=== PATIENT | male | born 1940 | race Caucasian/White ===

== ENCOUNTER 2016-05-12 05:13 | Inpatient (IN) | payer OTHER ==
--- NOTE | ~2016-05-12 | HP ---
History And Physical [address] [place]. [address] NAME: JAKE MAGAÑA : 39 STATUS : ADM IN [facility]#: [id number] AGE: 75 ADM/REG DATE : 05/12/16 MR#: [id number] REPORT SERV DATE: 05/12/16 DICTATED BY: DATE: REPORT STATUS : Draft TRANSCRIBED BY: MODL DATE: 05/12/16 DATE OF ADMISSION: 05/12/2016 CHIEF COMPLAINT: Shortness of breath and cough. HISTORY OF PRESENT ILLNESS: Mr. Magaña is a 75-year-old white male, who dialyzes in [place] on Thursday, Thursday, and Thursday for his end-stage renal disease. He has a history of COPD, coronary artery disease, and aortic valve replacement. He presents to the hospital with a two- to three-week history of cough. He states the cough is not new. He has a chronic white sputum production that has worsened. He is also experiencing shortness of breath. Denies any fevers or chills. Denies any chest pain. No other symptoms, but given the persistent nature of his symptoms, he presented to the emergency department. In the emergency department, it is felt he possibly had pneumonia and therefore, he was admitted for further evaluation and treatment. PAST MEDICAL HISTORY: End-stage renal disease, hypertension, COPD, aortic stenosis with aortic valve replacement, coronary artery disease, head injury in the past, obstructive sleep apnea. SOCIAL HISTORY: He is , lives with . Has a history of tobacco use, but quit in the . No alcohol or illicit drug use. FAMILY MEDICAL HISTORY: Positive for end-stage renal disease. ALLERGIES: NONE. MEDICATIONS: Amlodipine, aspirin, B complex, Symbicort, Plavix, Aranesp, Lasix, Imdur, magnesium, nitroglycerin, and Renvela. REVIEW OF SYSTEMS: A 12-point review of systems obtained and negative with the exception of that in the HPI. PHYSICAL EXAMINATION: VITAL SIGNS: Temperature 98.5, blood pressure 144/48, pulse 68, respiratory rate 16, O2 saturation is 95%. GENERAL: This is a pleasant, cooperative white male. He is awake, alert and oriented x3, in no acute distress. Answers questions appropriately. HEENT: Normocephalic and atraumatic. Conjunctivae clear. Sclerae anicteric. Pupils are equal and round. Oral mucosa is moist. NECK: Supple. Carotids are brisk. Neck veins are flat. No lymphadenopathy. LUNGS: Respirations are even and unlabored. He does cough throughout exam and has some rhonchi bilaterally. Breath sounds are also coarse. HEART: Rate is regular. I did hear a faint murmur. No rub or gallop. ABDOMEN: Soft and nontender. Bowel sounds active. No masses. No hepatosplenomegaly. No bruits. No CVA tenderness. BACK: Within normal limits. History And Physical [address] [place]. [address] NAME: JAKE MAGAÑA : 39 STATUS : ADM IN [facility]#: [id number] AGE: 75 ADM/REG DATE : 05/12/16 MR#: [id number] REPORT SERV DATE: 05/12/16 DICTATED BY: DATE: REPORT STATUS : Draft TRANSCRIBED BY: MODL DATE: 05/12/16 EXTREMITIES: No edema, cyanosis, or clubbing. SKIN: Warm, dry, and intact. No unusual rashes or skin lesions. NEURO: No focal deficits. Mood and affect, pleasant and appropriate. PERTINENT LABORATORIES AND X-RAYS: Chest x-ray which is negative. BNP of 1353. Sodium 138, potassium 4.6, chloride 105, CO2 of 22, BUN of 46, creatinine of 5.3, calcium 8.6, glucose 102, albumin of 3.5. LFTs unremarkable. Troponin 0.09. WBCs 14,000; H and H 10 and 33; platelets 212,000. IMPRESSION: 1. Possible pneumonia. 2. Chronic obstructive pulmonary disease. 3. End-stage renal disease. 4. Hypertension. 5. Coronary artery disease, status post bypass. PLAN: Admit. Antibiotics, nebulizers, dialysis. His troponin was mildly elevated at 0.09, we will complete a set of cardiac enzymes. Check procalcitonin, antibiotics, and follow up symptoms. Further orders and recommendations pending clinical course. ROBIN/ALMA JOSE LUIS Ford / [id number] CC: Mamie Frias M.D.
--- NOTE | ~2016-05-12 | CN ---
Consultation Report [facility] [address] [place]. [address] NAME: JAKE JENKINS : 39 STATUS : ADM IN PAT#: [id number] AGE: 75 ADM/REG DATE : 05/12/16 MR#: [id number] REPORT SERV DATE: 05/14/16 DICTATED BY: LAWRENCE CANALES DATE: 05/14/16 REPORT STATUS : Draft TRANSCRIBED BY: MODL DATE: 05/14/16 CARDIOVASCULAR CONSULTATION DATE OF CONSULTATION: 05/14/2016 HISTORY OF PRESENT ILLNESS: Mr. Jake Jenkins is a 75-year-old gentleman with a past medical history significant for coronary artery disease, status post previous bypass with aortic valve replacement in [place]. This was performed in 2007. He had a redo bypass which was a robotic-assisted MIDCAB by Dr. Quiñones in January 2014 with a MALCOLM to the LAD. He has done very well from a cardiac standpoint since that time. The patient also is a dialysis patient. He presented to the hospital with a two- to three-week history of worsening cough and sputum production. He also reported some shortness of breath. He denies any chest pain. He denies any diaphoresis or nausea. He was admitted secondary to possible pneumonia. REVIEW OF SYSTEMS: As above, otherwise, noncontributory. The patient specifically denies cardiac complaints including palpitations, orthopnea, paroxysmal nocturnal dyspnea, syncope, or presyncope. He denies chest pain or pressure. PAST MEDICAL HISTORY: As noted above, significant for two-vessel bypass with bioprosthetic aortic valve replacement in 2007 in [place]. The bypass was a sequential SVG to the obtuse marginal artery and posterior descending artery. Subsequent MINICAB by Dr. Quiñones in 2013, MALCOLM to LAD. The patient also with a history of asthma/COPD. He has history of chronic kidney disease with dialysis on Thursday, Thursday, and Thursday. He has a history of hypertension. FAMILY HISTORY: Noncontributory. SOCIAL HISTORY: The patient quit smoking in 1983. ALLERGIES: THE PATIENT HAS NO KNOWN DRUG ALLERGIES. MEDICATIONS: See list. PHYSICAL EXAMINATION: VITAL SIGNS: Blood pressure 150/70, pulse is 86, and respiratory rate 18. GENERAL: This is a well-developed, well-nourished 75-year-old white male, alert and oriented x3, in no acute distress. NECK: No jugular venous distention, hepatojugular reflux, or carotid bruits. CARDIOVASCULAR: Normal rate with regular rhythm. A 3/6 systolic murmur, heard best at the left upper sternal border. ABDOMEN: Benign. Consultation Report [facility] [address]. [address] NAME: JAKE JENKINS : 39 STATUS : ADM IN [facility]#: [id number] AGE: 75 ADM/REG DATE : 05/12/16 MR#: [id number] REPORT SERV DATE: 05/14/16 DICTATED BY: LAWRENCE CANALES DATE: 05/14/16 REPORT STATUS : Draft TRANSCRIBED BY: ALMA DATE: 05/14/16 EXTREMITIES: Reveals no clubbing, cyanosis, or edema. LABORATORY DATA: Significant for a troponin of 0.09, 0.07, and 0.05. This morning, this was slightly higher at 0.26. EKG showed sinus rhythm with frequent PACs and PVCs. There is no acute injury pattern. There is a first-degree AV block. Review of telemetry shows some nonsustained ventricular tachycardia and one strip with suggested brief run of atrial fibrillation. ASSESSMENT: 1. Possible pneumonia. 2. End-stage renal disease. 3. Coronary artery disease, status post redo coronary artery bypass grafting. 4. Status post aortic valve replacement. 5. Nonsustained ventricular tachycardia, brief atrial fibrillation. PLAN: 1. We will increase beta-david. 2. I have discussed possible repeat cardiac catheterization with this patient who is currently not agreeable. I will see how he does with medical management. His slightly elevated troponin is not too bothersome considering his comorbidities and end-stage renal disease. 3. I have convinced him to stay for one more day as he was initially planning on leaving this morning. We will try to verify that he has no further arrhythmia or sign of ischemia prior to his discharge. I appreciate your consultation on this complex patient. I will follow him closely with you. SHARI Lawrence Canales M.D., [facility] / [id number] CC: Mamie Frias M.D. David Castrilli, MD
--- NOTE | ~2016-05-12 | DS ---
Discharge Summary [facility] [address] [place]. [address] NAME: JAKE MAGAÑA : 38 STATUS : DIS IN PAT#: [id number] AGE: 75 ADM/REG DATE : 05/12/16 MR#: [id number] REPORT SERV DATE: 05/21/16 DICTATED BY: RAY ELMORE DATE: 05/20/16 REPORT STATUS : Draft TRANSCRIBED BY: ALMA DATE: 05/20/16 Data Collection from hospitalization DISCHARGE DIAGNOSES: 1. Gww-EW-yjhvbzftk myocardial infarction. 2. Nonsustained ventricular tachycardia/atrial fibrillation. 3. End-stage renal disease. 4. Possible pneumonia. 5. Acute exacerbation of chronic obstructive pulmonary disease. 6. Coronary artery disease. 7. Hypertension. 8. Obstructive sleep apnea. 9. Former smoker. CONSULTATIONS: Lawrence Soto M.D., [facility]. PROCEDURES: None. DISCHARGE MEDICATIONS: 1. Norvasc 10 mg every morning. 2. Aspirin 325 mg every morning. 3. Renal Softgels 1 mg every morning. 4. Symbicort two puffs via inhaler daily as needed. 5. Plavix 75 mg every morning. 6. Lasix 80 mg with breakfast and supper. 7. Imdur 30 mg every morning. 8. Mag-Ox 400 mg twice a day. 9. Lopressor 50 mg twice a day. 10.Deltasone 10 mg four times a day. 11.Renvela 800 mg with meals. CONDITION AT DISCHARGE: Stable. DISPOSITION: The patient was discharged home on a renal diet with activities as instructed. He would follow up with Dr. Lawrence Soto as instructed. HOSPITAL COURSE: This is a 75-year-old man who dialyzes on Mondays, Wednesdays, and Fridays for his end-stage renal disease. He has a history of COPD and coronary artery disease as well as aortic valve replacement. He presented to the hospital with a hdy-un-tureh-week history of cough. He said the cough was not new. He has a chronic white sputum production that has worsened. He was also experiencing shortness of breath. He denied any fevers or chills. He denied chest pain. Given the persistent nature of his symptoms he presented to the emergency department. In the emergency department, it was felt that he possibly had pneumonia, and therefore he was admitted at this time for further evaluation and treatment. Upon admission, creatinine level was 5.3. White count was 14,000. Liver function tests were unremarkable. Antibiotics, nebulizers, and dialysis were going to begin. Troponin was mildly elevated at 0.09. A complete set of cardiac enzymes would be obtained. We would Discharge Summary [address]. [address] NAME: JAKE MAGAÑA : 39 STATUS : DIS IN PAT#: [id number] AGE: 75 ADM/REG DATE : 05/12/16 MR#: [id number] REPORT SERV DATE: 05/21/16 DICTATED BY: RAY ELMORE DATE: 05/20/16 REPORT STATUS : Draft TRANSCRIBED BY: ALMA DATE: 05/20/16 check procalcitonin level. Hemodialysis therapy was performed. The following day, his shortness of breath and cough had improved. Blood cultures were negative. IV steroids and nebulizers were being given. Antibiotics were continued. On 05/14/2016, he was seen by Dr. Lawrence Soto. The patient has a history significant for coronary artery disease. He is status post previous bypass with aortic valve replacement in [place], this was performed in 2007. He had a redo bypass which was a robotic assisted MIDCAB by Dr. Quiñones in January 2014 with MALCOLM to the LAD. He has done very well from a cardiac standpoint since that time. He is a dialysis patient. He had reported some shortness of breath and a worsening cough and sputum production over the last couple of weeks. He denied any chest pain, diaphoresis, or nausea. He was felt to have possible pneumonia. Troponin was 0.09, 0.07, and 0.05 and then earlier in the day it was slightly higher at 0.26. EKG showed sinus rhythm with frequent PAC and PVCs. There was no acute injury pattern. There was a first degree AV block. Telemetry showed some nonsustained ventricular tachycardia, in one strip was suggested brief run of atrial fibrillation. Beta-david was increased. Possible repeat cardiac catheterization was discussed with the patient, who was currently not agreeable. We are going to see how he did with medical management. We convinced the patient to stay for one more day as he was initially planning on leaving that morning. We would try to verify that he had no further arrhythmia or signs of ischemia prior to discharge. Echocardiogram was performed. Hemodialysis therapy was performed. On 05/15/2016, he reported no new complaints. He denied chest pain or shortness of breath. He had no tightness. He had a few mild rhonchi. His elevated troponin and nonsustained ventricular tachycardia was felt to be suspicious for ischemia. It was felt that he should undergo left heart catheterization and percutaneous coronary intervention, but the patient refused. Dr. Soto candidly discussed the risk of fatal arrhythmia or myocardial infarction, and the patient continued to refuse. The patient has moderate aortic insufficiency and mitral regurgitation. Ejection fraction was 50%. There was no significant change from 2013. The risk of leaving against medical advice was discussed with the patient as well as the benefits of remaining in the hospital. The patient expressed that he would contact Cardiology for a cardiac catheterization as an outpatient. He was advised to call 911 for any worsening symptoms. It was advised that the patient not drive. Discharge instructions were given. The patient elected to leave the hospital against medical advice. Information collected by: Octavia Vera I submit the above information as my discharge summary. TG/MODL Ray Elmore M.D. / [id number] CC: Anand Pruitt M.D. Jeronimo Chacko M.D. Lawrence Soto M.D., [facility]
[2016-05-12 04:02] LABS: BASOPHILS 0.2 %; BASOPHILS ABSOLUTE 0.03 10/3/uL (0.0-0.16); EOSINOPHILS 2.7 %; EOSINOPHILS ABSOLUTE 0.38 10/3/uL (0.0-0.53); HEMATOCRIT 33.2 % (40.0-51.0); HEMOGLOBIN 10.8 g/dL (13.6-17.8); IMMATURE GRANULOCYTES 0.3 %; IMMATURE GRANULOCYTES ABSOLUTE 0.04 10/3/uL (0.0-0.11); LYMPHOCYTES 3.8 %; LYMPHOCYTES ABSOLUTE 0.53 10/3/uL (0.67-4.30); MEAN CORPUS HGB CONC 32.5 g/dL (32.0-36.0); MEAN CORPUSCULAR HEMOGLOB 31.1 pg (26.0-34.0); MEAN PLATELET VOLUME 10.6 fL (9.2-13.0); MONOCYTES 7.4 %; MONOCYTES ABSOLUTE 1.05 10/3/uL (0.21-1.20); NEUTROPHILS 85.6 %; PLATELET COUNT 212 10/3/uL (150-400); RBC DISTRIBUTION WIDTH 13.8 % (12.0-16.0); RED CELL COUNT 3.47 10/6/uL (4.7-6.1)
[2016-05-12 04:03] LABS: MANUAL DIFF NO %; MEAN CORPUSCULAR VOLUME 95.7 fL (80-100); WHITE BLOOD CELLS 14.1 10/3/uL (4.5-10.5)
[2016-05-12 04:12] LABS: INFLUENZA A SCREEN NEGATIVE (NEGATIVE); INFLUENZA B SCREEN NEGATIVE (NEGATIVE)
[2016-05-12 04:33] LABS: A/G RATIO 0.8 (0.7-1.9); ALBUMIN 3.5 G/DL (3.5-5.0); BUN (BLOOD UREA NITROGEN) 46 MG/DL (6-23); CALCIUM, SERUM 8.6 MG/DL (8.5-10.4); CHLORIDE, SERUM 105 MMOL/L (96-112); GLOBULIN 4.2 G/DL (2.5-4.1); POTASSIUM, SERUM 4.6 MMOL/L (3.5-5.3); SGOT(AST) 22 U/L (5-40); SGPT(ALT) 20 U/L (5-65); SODIUM, SERUM 138 MMOL/L (135-148); TOTAL BILIRUBIN 0.6 MG/DL (0-1.2); TOTAL PROTEIN 7.7 G/DL (6.0-8.5)
[2016-05-12 04:34] LABS: ALKALINE PHOSPHATASE 87 U/L (45-117); CO2 (CARBON DIOXIDE) 22 MMOL/L (24-34); CREATININE 5.36 MG/DL (0.70-1.30); GFR AFRICAN AMERICAN 11 ML/MIN (>=60); GFR NON AFRICAN AMERICAN 10 ML/MIN (>=60); GLUCOSE, SERUM 102 MG/DL (60-99); TROPONIN I 0.09 NG/ML (<0.05)
[~2016-05-12 05:13] MED LIST: ADVAIR; ADVAIR250 INH; ASA5GR PO; ASAB PO; CARDURA XL8 MG PO; CARDURA8 MG PO; CENTRUM TAB1 TAB PO; COZ50 PO; CRESTOR20 MG PO; DEPO-TESTOS100 MG/ML IM; EZFE 200200 MG PO; FERROUS SULF325 M1 PO; HALF81 PO; IMDUR30 PO; L80 PO; LOP25 PO; MULTI-VIT HP OR; NORCO1 TA1 PO; NORV10 PO; PEP20 PO; PLAVIX PO; PRAVACHOL40 MG PO; RENAL SFTGLS1 MG PO; ROCALTROL 0.0.25 MCG PO; SEVE800T PO; UNABLE TO VERIFY; X25 PO
[2016-05-12] MEDS ORDERED: ARANESP25 IV (08:33)
[2016-05-12] MEDS ORDERED: ASA5GR PO (08:34)
[2016-05-12] MEDS ORDERED: NORV10 PO (08:34)
[2016-05-12] MEDS ORDERED: IMDUR30 PO (08:35)
[2016-05-12] MEDS ORDERED: L80 PO (08:35)
[2016-05-12] MEDS ORDERED: PLAVIX PO (08:36)
[2016-05-12] MEDS ORDERED: MAGOX4 PO (08:36)
[2016-05-12] MEDS ORDERED: SEVE800T PO (08:37)
[2016-05-12] MEDS ORDERED: RENAL SFTGLS1 MG PO (08:37)
[2016-05-12] MEDS ORDERED: SYMBICORT 80/4.1 INH INH (08:38)
[2016-05-12] MEDS ORDERED: NITROSTAT0.4 MG SL (08:40)
[2016-05-12 12:08] LABS: PROCALCITONIN 0.24 ng/mL (<0.5)
[2016-05-13 09:12] LABS: BASOPHILS 0 %; EOSINOPHILS 0 %; HEMATOCRIT 32.8 % (40.0-51.0); HEMOGLOBIN 10.8 g/dL (13.6-17.8); IMMATURE GRANULOCYTES 0.2 %; IMMATURE GRANULOCYTES ABSOLUTE 0.04 10/3/uL (0.0-0.11); LYMPHOCYTES ABSOLUTE 0.35 10/3/uL (0.67-4.30); MANUAL DIFF NO %; MEAN CORPUS HGB CONC 32.9 g/dL (32.0-36.0); MEAN CORPUSCULAR HEMOGLOB 31.1 pg (26.0-34.0); MEAN CORPUSCULAR VOLUME 94.5 fL (80-100); MEAN PLATELET VOLUME 10.5 fL (9.2-13.0); MONOCYTES 2.2 %; MONOCYTES ABSOLUTE 0.38 10/3/uL (0.21-1.20); NEUTROPHILS 95.6 %; NEUTROPHILS ABSOLUTE 16.49 10/3/uL (2.02-8.40); PLATELET COUNT 218 10/3/uL (150-400); RBC DISTRIBUTION WIDTH 14.1 % (12.0-16.0); RED CELL COUNT 3.47 10/6/uL (4.7-6.1); WHITE BLOOD CELLS 17.3 10/3/uL (4.5-10.5)
[2016-05-13 09:23] LABS: ALBUMIN 3.4 G/DL (3.5-5.0); BUN (BLOOD UREA NITROGEN) 43 MG/DL (6-23); CHLORIDE, SERUM 100 MMOL/L (96-112); CO2 (CARBON DIOXIDE) 24 MMOL/L (24-34); CREATININE 4.53 MG/DL (0.70-1.30); GFR AFRICAN AMERICAN 14 ML/MIN (>=60); GFR NON AFRICAN AMERICAN 12 ML/MIN (>=60); GLUCOSE, SERUM 237 MG/DL (60-99); PHOSPHORUS, SERUM 2.4 MG/DL (2.5-4.5); POTASSIUM, SERUM 3.5 MMOL/L (3.5-5.3); SODIUM, SERUM 140 MMOL/L (135-148)
[2016-05-14 05:17] LABS: HEMATOCRIT 29.7 % (40.0-51.0); MEAN CORPUS HGB CONC 33.7 g/dL (32.0-36.0); MEAN CORPUSCULAR HEMOGLOB 32.3 pg (26.0-34.0); MEAN CORPUSCULAR VOLUME 95.8 fL (80-100); MEAN PLATELET VOLUME 10.9 fL (9.2-13.0); PLATELET COUNT 206 10/3/uL (150-400); RBC DISTRIBUTION WIDTH 14.2 % (12.0-16.0); WHITE BLOOD CELLS 21.6 10/3/uL (4.5-10.5)
[2016-05-14 05:20] LABS: MANUAL DIFF YES %
[2016-05-14 05:30] LABS: ALBUMIN 3.1 G/DL (3.5-5.0); CALCIUM, SERUM 8.7 MG/DL (8.5-10.4); CHLORIDE, SERUM 100 MMOL/L (96-112); CO2 (CARBON DIOXIDE) 24 MMOL/L (24-34); PHOSPHORUS, SERUM 2.8 MG/DL (2.5-4.5); POTASSIUM, SERUM 3.9 MMOL/L (3.5-5.3); SODIUM, SERUM 138 MMOL/L (135-148)
[2016-05-14 05:31] LABS: BUN (BLOOD UREA NITROGEN) 65 MG/DL (6-23); CK-MB 3.4 NG/ML; CPK 79 U/L (0-200); CREATININE 5.58 MG/DL (0.70-1.30); GFR AFRICAN AMERICAN 11 ML/MIN (>=60); GFR NON AFRICAN AMERICAN 9 ML/MIN (>=60); GLUCOSE, SERUM 176 MG/DL (60-99)
[2016-05-14 05:32] LABS: TROPONIN I 0.26 NG/ML (<0.05); ULTRASENSITIVE TSH 0.202 MCIU/ML (0.358-3.740)
[2016-05-14 05:44] LABS: LYMPHOCYTES 2 %; LYMPHOCYTES ABSOLUTE (CALC) 0.43 10/3/uL (0.67-4.30); MONOCYTES 2 %; MONOCYTES ABSOLUTE (CALC) 0.43 10/3/uL (0.21-1.20); NEUTROPHILS ABSOLUTE (CALC) 20.74 10/3/uL (2.02-8.40); PLATELET ESTIMATE ADQ (ADEQUATE); RBC MORPHOLOGY NORM (NORMAL); SEGMENTED NEUTROPHIL (0) 96 %; TOTAL NUCLEATED CELLS 100
[2016-05-14 13:48] LABS: CPK 91 U/L (0-200); TROPONIN I 0.45 NG/ML (<0.05)
[2016-05-14 18:25] LABS: CPK 97 U/L (0-200)
[2016-05-14 18:26] LABS: CK-MB 4.4 NG/ML
[2016-05-15 07:56] LABS: BASOPHILS 0.1 %; BASOPHILS ABSOLUTE 0.01 10/3/uL (0.0-0.16); EOSINOPHILS 0 %; HEMOGLOBIN 11.7 g/dL (13.6-17.8); IMMATURE GRANULOCYTES 0.8 %; IMMATURE GRANULOCYTES ABSOLUTE 0.15 10/3/uL (0.0-0.11); LYMPHOCYTES 4.1 %; LYMPHOCYTES ABSOLUTE 0.82 10/3/uL (0.67-4.30); MEAN CORPUS HGB CONC 33.3 g/dL (32.0-36.0); MEAN CORPUSCULAR HEMOGLOB 32.1 pg (26.0-34.0); MEAN CORPUSCULAR VOLUME 96.4 fL (80-100); MONOCYTES 1.9 %; MONOCYTES ABSOLUTE 0.37 10/3/uL (0.21-1.20); NEUTROPHILS 93.1 %; NEUTROPHILS ABSOLUTE 18.64 10/3/uL (2.02-8.40); PLATELET COUNT 232 10/3/uL (150-400); RBC DISTRIBUTION WIDTH 14.1 % (12.0-16.0); RED CELL COUNT 3.64 10/6/uL (4.7-6.1)
[2016-05-15 08:01] LABS: HEMATOCRIT 35.1 % (40.0-51.0); MANUAL DIFF NO %
[2016-05-15 08:12] LABS: ALBUMIN 3.5 G/DL (3.5-5.0); BUN (BLOOD UREA NITROGEN) 56 MG/DL (6-23); CALCIUM, SERUM 8.8 MG/DL (8.5-10.4); CHLORIDE, SERUM 99 MMOL/L (96-112); CO2 (CARBON DIOXIDE) 24 MMOL/L (24-34); CREATININE 4.59 MG/DL (0.70-1.30); GFR AFRICAN AMERICAN 13 ML/MIN (>=60); GFR NON AFRICAN AMERICAN 12 ML/MIN (>=60); GLUCOSE, SERUM 122 MG/DL (60-99); PHOSPHORUS, SERUM 3.5 MG/DL (2.5-4.5); POTASSIUM, SERUM 4.6 MMOL/L (3.5-5.3); SODIUM, SERUM 136 MMOL/L (135-148)
[2016-05-15] MEDS ORDERED: LOP25 PO (10:55)
[2016-05-15] MEDS ORDERED: P10 PO (10:55)
[2016-05-29] MEDS ORDERED: CARDURA8 MG PO (11:47)
== END 2016-05-15 11:06 | disposition left against medical advice (07) | DRG 190 ==
LOC: ER 05:13 → 2SO 06:00
PROVIDERS: Internal Medicine Nephrology; Nurse Practitioner; Specialist
PROC: 5A1D60Z (ICD-10-PCS; principal; 2016-05-12)
DX: J44.1 Chronic obstructive pulmonary disease with (acute) exacerbation (principal); J18.1 Lobar pneumonia, unspecified organism; I47.2 Ventricular tachycardia; N18.6 End stage renal disease; I12.0 Hypertensive chronic kidney disease with stage 5 chronic kidney disease or end stage renal disease; I48.91 Unspecified atrial fibrillation; I25.10 Atherosclerotic heart disease of native coronary artery without angina pectoris; G47.33 Obstructive sleep apnea (adult) (pediatric); I08.0 Rheumatic disorders of both mitral and aortic valves; J44.0 Chronic obstructive pulmonary disease with (acute) lower respiratory infection; Z84.1 Family history of disorders of kidney and ureter; Z99.2 Dependence on renal dialysis; Z95.1 Presence of aortocoronary bypass graft; Z95.2 Presence of prosthetic heart valve; Z79.01 Long term (current) use of anticoagulants; Z53.21 Procedure and treatment not carried out due to patient leaving prior to being seen by health care provider; Z87.891 Personal history of nicotine dependence
CPT/HCPCS: 71010; 80053; 80069; 82550; 82553; 82962; 83735; 83880; 84145; 84443; 84484; 85025; 85730; 87040; 87070; 87205; 87804; 93005; 93306; 94640; 96374; 96375; 99285; A9270-GY; G0257; J0456; J2920; J2930

== ENCOUNTER 2016-05-30 05:54 | Observation (INO) | payer OTHER ==
--- NOTE | ~2016-05-30 | OP ---
Record Of Operation [facility] [address] [place]. [address] NAME: JAKE MAGAÑA : 38 STATUS : DIS [place] PAT#: [id number] AGE: 75 ADM/REG DATE : 05/30/16 MR#: [id number] REPORT SERV DATE: 06/02/16 DICTATED BY: LAWRENCE CANALES DATE: 05/30/16 REPORT STATUS : Draft TRANSCRIBED BY: MODL DATE: 05/30/16 DATE OF PROCEDURE: 05/30/2016 INDICATION: Recent rmx-YB-flobhbc elevation myocardial infarction. The patient is status post previous bypass and aortic valve replacement. REFERRING PHYSICIAN: Dr. Pruitt in [facility]. PROCEDURE: Left heart catheterization, coronary arteriography, saphenous vein graft arteriography, left internal mammary arteriography, abdominal aortography, PCI/stent of [place] right coronary artery via saphenous vein graft, PCI/stent of the left main coronary artery. DESCRIPTION OF PROCEDURE: After informed consent was obtained, patient was taken in a fasting state to cardiac catheterization laboratory, where he was prepped and draped in sterile fashion. Conscious sedation was obtained using intravenous Versed and fentanyl. The right inguinal region was anesthetized using 1% Xylocaine. The right femoral artery was then entered using a front-wall approach, however, several wires would not traverse the tortuous vessel. Three separate sticks were attempted. A standard J-wire, a Glidewire, and a Wholey wire were also used, but did not traverse the vessel. The left inguinal region was then anesthetized using 1% Xylocaine. The left femoral artery was then entered using a front-wall approach and cannulated with a J-wire. A 6-Indonesian JR4 catheter and a J-wire were used to traverse the vessel, which was then cannulated with a 6- Indonesian 45 cm sheath. The JR4 catheter was then used to engage the sequential saphenous vein graft to the obtuse marginal and the right posterior descending artery. Serial angiograms were obtained. The [place] right coronary artery was not engaged as it was known from previous studies to be chronically occluded. A 6-Indonesian JR4 catheter was then advanced into the left subclavian for nonselective angiography of the left internal mammary artery. This catheter would not selectively engage. After trying several wires, the vessel was engaged using a 5-Indonesian internal mammary artery catheter. Serial angiograms were obtained. This catheter was then exchanged for a 6-Indonesian JL5 catheter, which was used to engage the left main coronary artery. Serial angiograms were obtained. Results of diagnostic angiography as follows: HEMODYNAMICS: Aorta 128/45 with a mean pressure 71 mmHg. CORONARY ANATOMY: 1. Left main coronary artery: The left main coronary artery arises normally from left coronary cusp. This vessel has a 95% ostial stenosis. 2. Left anterior descending artery: The left anterior descending artery arises normally from left main coronary artery. This vessel is diffusely diseased with competitive flow noted immediately after the takeoff of the first diagonal artery. 3. Left circumflex artery: The left circumflex artery arises normally from left main coronary artery. This vessel is subtotally occluded proximally. 4. Right coronary artery: The right coronary artery is known from previous studies to be Record Of Operation [address] [address] NAME: JAKE MAGAÑA : 39 STATUS : DIS Davide PAT#: [id number] AGE: 75 ADM/REG DATE : 05/30/16 MR#: [id number] REPORT SERV DATE: 06/02/16 DICTATED BY: LAWRENCE CANALES DATE: 05/30/16 REPORT STATUS : Draft TRANSCRIBED BY: MODL DATE: 05/30/16 chronically occluded. It had been previously stented. 5. The sequential saphenous vein graft to the obtuse marginal and right posterior descending arteries is widely patent. There is a 90% stenosis in the large posterior descending artery proximal to the graft anastomosis. 6. After the above findings, it was decided to proceed with PCI of the [place] right coronary artery/PDA lesion via the saphenous vein graft. A 6-Indonesian JR4 guiding catheter was used with a [employer] PT 0.014 x 182 cm extra support wire to cross through the graft and into the [place] right posterior descending artery crossing 90% stenosis. A [employer] Emerge 3.0 x 15 mm balloon was then positioned across the lesion and inflated to 11 atmospheres for 30 seconds. This balloon was then withdrawn and [employer] Rebel 3.0 x 16 mm bare-metal stent was carefully positioned and deployed using 11 atmospheres for 30 seconds. Additional inflation was performed to 14 atmospheres for 30 seconds. 7. Repeat angiography revealed a 0% residual stenosis with no dissection, flap, thrombus, embolization, or occlusion apparent. 8. Attention was then turned to the 95% left main coronary artery stenosis. The left internal mammary artery to the mid LAD did not provide adequate retrograde flow to the first diagonal artery. 9. A 6-Indonesian JL5 guiding catheter was introduced, but did not adequately engage the vessel. It was exchanged for a 6-Indonesian Q4 guiding catheter, which engaged the vessel. The [employer] PT wire was then used to cross the lesion. A [employer] Emerge 3.0 x 15 mm balloon was then used to cross the lesion. It was inflated to 11 atmospheres for 20 seconds. Additional inflation was performed at 16 atmospheres for 20 seconds. This balloon was then withdrawn and a second [employer] PT extra support wire was used to stewart the ostial left main. It was positioned in the ascending aorta. After marking the ostia, an [employer] Multi-link Vision 3.0 x 15 mm bare-metal stent was then carefully positioned and deployed using 16 atmospheres for 20 seconds. Additional inflation was performed at 16 atmospheres for 20 seconds. 10.Repeat angiography revealed a 0% residual stenosis with no dissection, flap, thrombus, embolization, or occlusion apparent. 11.Following the PCI, a 6-Indonesian pigtail catheter was positioned in the descending aorta and an aortogram was performed, which revealed extremely tortuous right femoral and iliac vessels. 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 COMPLICATIONS: There were no apparent complications. CONCLUSIONS: 1. Severe skagway vessel coronary artery disease as described above. 2. Patent MALCOLM to mid LAD. 3. Patent saphenous vein graft (sequential), obtuse marginal, and posterior descending arteries. 4. Successful PCI/stent of [place] right coronary artery via saphenous vein graft. 5. Successful PCI as described above of left main coronary artery. 6. Peripheral vascular disease as noted above. 7. No apparent complications. Record Of Operation [facility] [address] [facility] [place]. [address] NAME: JAKE MAGAÑA : 38 STATUS : DIS Davide PAT#: [id number] AGE: 75 ADM/REG DATE : 05/30/16 MR#: [id number] REPORT SERV DATE: 06/02/16 DICTATED BY: LAWRENCE CANALES DATE: 05/30/16 REPORT STATUS : Draft TRANSCRIBED BY: MODDuong DATE: 05/30/16 SA/MODL Lawrence Canales M.D., [facility] / [id number] CC: Lawrence Canales M.D., [facility] Mamie Wiggins MD Christopher Poole, M.D.
[~2016-05-30 05:54] MED LIST changes: +ARANESP25 IV; +MAGOX4 PO; +NITROSTAT0.4 MG SL; +P10 PO; +SYMBICORT 80/4.1 INH INH
[2016-05-30 06:43] LABS: BASOPHILS 0.4 %; BASOPHILS ABSOLUTE 0.04 10/3/uL (0.0-0.16); EOSINOPHILS ABSOLUTE 0.36 10/3/uL (0.0-0.53); IMMATURE GRANULOCYTES 0.4 %; IMMATURE GRANULOCYTES ABSOLUTE 0.04 10/3/uL (0.0-0.11); LYMPHOCYTES 6.6 %; MEAN CORPUSCULAR HEMOGLOB 31.9 pg (26.0-34.0); MEAN CORPUSCULAR VOLUME 96.8 fL (80-100); MEAN PLATELET VOLUME 10.3 fL (9.2-13.0); MONOCYTES 9.2 %; MONOCYTES ABSOLUTE 0.83 10/3/uL (0.21-1.20); NEUTROPHILS 79.4 %; NEUTROPHILS ABSOLUTE 7.18 10/3/uL (2.02-8.40); PLATELET COUNT 169 10/3/uL (150-400); RBC DISTRIBUTION WIDTH 13.8 % (12.0-16.0)
[2016-05-30 06:46] LABS: HEMATOCRIT 27.3 % (40.0-51.0); MANUAL DIFF NO %; RED CELL COUNT 2.82 10/6/uL (4.7-6.1); WHITE BLOOD CELLS 9.1 10/3/uL (4.5-10.5)
[2016-05-30 07:02] LABS: CALCIUM, SERUM 8.4 MG/DL (8.5-10.4); CHLORIDE, SERUM 106 MMOL/L (96-112); CHOLESTEROL 131 MG/DL (< 200); CO2 (CARBON DIOXIDE) 24 MMOL/L (24-34); POTASSIUM, SERUM 4.8 MMOL/L (3.5-5.3); SODIUM, SERUM 141 MMOL/L (135-148)
[2016-05-30 07:03] LABS: BUN (BLOOD UREA NITROGEN) 48 MG/DL (6-23); CHOL/HDL RATIO(NOT ORDER) 2.3 (0-5); CREATININE 5.39 MG/DL (0.70-1.30); GFR AFRICAN AMERICAN 11 ML/MIN (>=60); GFR NON AFRICAN AMERICAN 9 ML/MIN (>=60); GLUCOSE, SERUM 90 MG/DL (60-99); HDL CHOLESTEROL 58 MG/DL (> 39); LDL CHOLESTEROL 62 MG/DL (< 130); NON-HDL CHOLESTEROL 73 MG/DL (< 160); TRIGLYCERIDE 58 MG/DL (< 150)
== END 2016-05-31 10:00 | disposition home or self-care (01) ==
LOC: CORLMH 05:54 → SSU1 06:03
PROVIDERS: Internal Medicine Interventional Cardiology
PROC: 4A023N7 Measurement of Cardiac Sampling and Pressure, Left Heart, Percutaneous Approach (ICD-10-PCS; principal; 2016-05-30)
PROC: B2151ZZ Fluoroscopy of Left Heart using Low Osmolar Contrast (ICD-10-PCS; 2016-05-30)
PROC: 027034Z Dilation of Coronary Artery, One Artery with Drug-eluting Intraluminal Device, Percutaneous Approach (ICD-10-PCS; 2016-05-30)
PROC: 02Q Heart and Great Vessels, Repair (ICD-10-PCS; 2016-05-30)
DX: I25.10 Atherosclerotic heart disease of native coronary artery without angina pectoris (principal); I10 Essential (primary) hypertension; Z95.3 Presence of xenogenic heart valve; Z95.1 Presence of aortocoronary bypass graft; Z87.891 Personal history of nicotine dependence; Z79.02 Long term (current) use of antithrombotics/antiplatelets; Z79.899 Other long term (current) drug therapy
CPT/HCPCS: 80048; 80061; 85025; 92928; 92937; 93005; 93459; 96374; 96376; 99152; 99153; A9270-GY; C1725; C1769; C1876; C1887; C1894; G0257; G0378; J0583; J2250; J3010; Q9967